=== PATIENT | female | born 1970 | race Caucasian/White ===

== ENCOUNTER 2017-04-09 17:07 | Emergency (ER) | payer BC ==
[~2017-04-09] VITALS: Ht 160 cm; Wt 66.7 kg
[2017-04-09 17:12] VITALS: TEMP 37.2; Ht 160 cm; Wt 66.7 kg
--- NOTE | 2017-04-09 17:41 | EMERGENCY ROOM VISIT NOTE ---
History Report prepared by Eugeneibellen: David Salgado Under the Supervision of: Dr. Geraldo Syed M.D. First contact with patient: 17:16 Chief Complaint: HEEL PAIN Stated Complaint: L ACHILLES TENDON History of Present Illness The patient is a 47 year old female who presents to the Emergency Room with complaints of persistent discomfort in her left ankle that started yesterday. The patient has a history of rupturing her Achilles tendons and has had multiple surgeries on both of her Achilles. The patient notes that she has been working out more frequently for the past month and a half. Yesterday, she was helping move boxes out of a basement when she started to notice the discomfort. When she woke up this morning and tried to stand up, the discomfort was significantly worse. She also notes a rubbing sensation and clicking sound with walking that is similar to her symptoms in the past when she has torn her Achilles. She also complains of a sudden shooting pain in her left ankle at times that comes and goes. She notes that her discomfort is significantly worsened when she puts weight on that foot. Source of History: patient Onset: yesterday Position: ankle (left) Quality: other (rubbing sensation and clicking sound) Timing: other (persistent) Modifying Factors (Worsening): other (weight-bearing) Note: Other associated symptoms: pain in ankle Review of Systems See HPI for pertinent positives & negatives. A total of 10 systems reviewed and were otherwise negative. Past Medical & Surgical Medical Problems: (1) Fibromyalgia Family History No significant family history Social History Smoking Status: Current Every Day Smoker Drug Use: none Marital Status: in relationship Housing Status: lives with family Occupation Status: employed Current/Historical Medications No Active Prescriptions or Reported Meds Allergies Coded Allergies: Ciprofloxacin (Verified Allergy, Unknown, vomiting, 04/09/17) Iodine (Verified Allergy, Unknown, rash, 04/09/17) Levofloxacin (Verified Allergy, Unknown, achilles tendons ruptured, ) Morphine (Verified Allergy, Unknown, vomiting, 04/09/17) Penicillins (Verified Allergy, Unknown, rash, 04/09/17) Sulfamethoxazole w/Trimethoprim (Verified Allergy, Unknown, dizzy, 04/09/17 ) Physical Exam Vital Signs Date Time Temp Pulse Resp B/P Pulse Ox O2 Delivery O2 Flow Rate FiO2 04/09/17 20:40 83 18 122/69 99 04/09/17 19:05 83 18 122/71 98 Room Air 04/09/17 17:12 37.2 102 20 122/77 97 Room Air Physical Exam GENERAL: Patient is a healthy-appearing well-nourished HEAD: Normocephalic atraumatic EYES: Ocular movements intact pupils equal and react to light OROPHARYNX mucous membranes are moist no exudates present no erythema or edema present NECK: Supple no nuchal rigidity CHEST: Good equal expansion LUNGS: Clear and equal to auscultation CARDIAC: Normal S1 and S2 ABDOMEN: Soft nontender no guarding BACK: No CVA tenderness EXTREMITIES: Able to plantarflex and dorsiflex the ankle, small bulge to the back of the ankle where the Achilles is. NEURO: Patient is following commands is answering questions appropriately. Alert and oriented x3 Cranial Nerves 2-12 grossly intact Medical Decision & Procedures ER Provider Diagnostic Interpretation: US results as stated below per my review and radiologist interpretation: ULTRASOUND LEFT LOWER EXTREMITY NONVASCULAR CLINICAL HISTORY: Left posterior ankle pain. Reported history of previous Achilles rupture/repair. COMPARISON STUDY: No priors. TECHNIQUE: Real-time grayscale sonography of the left Achilles tendon is performed. The Achilles tendon appears intact. There is a 4 mm echogenic shadowing structure within the substance of the Achilles tendon at the site of erythema. This may represent postoperative change. There is no fluid identified around the Achilles tendon. No hematoma is seen. IMPRESSION: 1. The Achilles tendon appears intact as imaged. 2. A shadowing echogenic structure along the course of the Achilles tendon may represent a calcification or postoperative change. Clinical correlation will be required. 3. There is no fluid identified around the Achilles tendon. No hematoma is suggested. Dictated: 04/09/2017 7:08 PM Transcribed: 04/09/2017 7:54 PM [email or web address] Electronically signed by: Puma Hennessy M.D. 04/09/2017 7:54 PM Dictated Date/Time: 04/09/2017 7:08 PM ED Course 1721: Past medical records reviewed. The patient was evaluated in room B11. A complete history and physical examination was performed. Medical Decision This is a 47-year-old female who presents emergency department complaining of left Achilles pain. Patient has a history of Achilles rupture. Based on the patient's complaint she was sent for an ultrasound of the tendon however does appear to be intact. Despite this I will place the patient in a walking boot and recommended she use crutches for follow-up with orthopedics. Patient was in agreement with the treatment plan. She refused any pain medication in the emergency department. Impression Primary Impression: Pain of left heel Scribe Attestation The scribe's documentation has been prepared under my direction and personally reviewed by me in its entirety. I confirm that the note above accurately reflects all work, treatment, procedures, and medical decision making performed by me. Departure Information Dispostion Home / Self-Care Prescriptions No Active Prescriptions or Reported Meds Referrals Ge Jennings MD (PCP) Forms HOME CARE DOCUMENTATION FORM, IMPORTANT VISIT INFORMATION, WORK / SCHOOL INSTRUCTIONS Patient Instructions ED Tendon Rupture Achilles, [facility], [place], Surgery Achilles Tendon Repair Additional Instructions Follow up with DR Cisneros's office Take 600 mg Ibuprofen every 6 hours You have been examined and treated today on an emergency basis only. This is not a substitute for, or an effort to provide, complete comprehensive medical care. It is impossible to recognize and treat all injuries or illnesses in a single emergency department visit. It is therefore important that you follow up closely with Dr Jennings. Call as soon as possible for an appointment. Thank you for your time and consideration. I look forward to speaking with you again soon. Please don't hesitate to call us if you have any questions.
--- NOTE | 2017-04-09 19:54 | DIAGNOSTIC IMAGING REPORT ---
ULTRASOUND LEFT LOWER EXTREMITY NONVASCULAR CLINICAL HISTORY: Left posterior ankle pain. Reported history of previous Achilles rupture/repair. COMPARISON STUDY: No priors. TECHNIQUE: Real-time grayscale sonography of the left Achilles tendon is performed. The Achilles tendon appears intact. There is a 4 mm echogenic shadowing structure within the substance of the Achilles tendon at the site of erythema. This may represent postoperative change. There is no fluid identified around the Achilles tendon. No hematoma is seen. IMPRESSION: 1. The Achilles tendon appears intact as imaged. 2. A shadowing echogenic structure along the course of the Achilles tendon may represent a calcification or postoperative change. Clinical correlation will be required. 3. There is no fluid identified around the Achilles tendon. No hematoma is suggested. Dictated: 04/09/2017 7:08 PM Transcribed: 04/09/2017 7:54 PM [email or web address]Summer Electronically signed by: Puma Hennessy M.D. 04/09/2017 7:54 PM Dictated Date/Time: 04/09/2017 7:08 PM
[2017-04-09 20:40] VITALS: BP 122/69; PULSE 83; O2SAT 99
[2017-05-06] MEDS ORDERED: OMEG10007 PO (11:25)
[2017-05-06] MEDS ORDERED: MULT-506 PO (11:25)
[2017-05-06] MEDS ORDERED: CALC-51 PO (11:25)
[2017-05-11] MEDS ORDERED: FLUT0.15 (12:19)
== END 2017-04-09 20:42 | disposition home or self-care (01) ==
LOC: C.EDB 17:11
DX: M25.572 Pain in left ankle and joints of left foot (principal); F17.200 Nicotine dependence, unspecified, uncomplicated; Z88.0 Allergy status to penicillin; Z88.2 Allergy status to sulfonamides; Z88.3 Allergy status to other anti-infective agents; Z88.5 Allergy status to narcotic agent; Z88.8 Allergy status to other drugs, medicaments and biological substances; Z91.09 Other allergy status, other than to drugs and biological substances

== ENCOUNTER → 2017-05-11 | Day surgery (SDC) | payer BC ==
[2017-05-06 11:25] VITALS: Ht 157.5 cm; Wt 62.3 kg
[~2017-05-11] VITALS: Ht 157.5 cm; Wt 62.3 kg
[~2017-05-11] MED LIST: BUPIVACAINE 0.25% 2.5MG/ML PF 10 ML VIAL ONE; CALC-51 PO; FLUT0.15; LIDOCAINE HCL 1% 20 ML VIAL ONE; LIDOCAINE HCL 1% MPF 5 ML VIAL ONE; METH4PAK PO; MULT-506 PO; OMEG10007 PO
--- NOTE | 2017-05-11 12:54 | History & Physical Bridge - SC ---
H&P Re-Evaluation Bridge Note: I have examined the patient, reviewed the History & Physical and in the interval since the performance of the History & Physical I have noted the following changes of clinical significance: No changes noted
[2017-05-11 14:14] VITALS: TEMP 37.1
--- NOTE | 2017-05-11 14:26 | Discharge Instructions ---
Discharge Instructions Date of Service May 11, 2017. Visit Reason for Visit: Low Back Pain Discharge Discharge Diagnosis / Problem: chronic low back pain Discharge Goals Goal(s): Decrease discomfort, Improve function Activity Recommendations Activity Limitations: resume your previous activity Anesthesia . Post Anesthesia Instructions: If you have had General Anesthesia or IV Sedation: * Do not drive today. * Resume driving when surgeon permits. * Do not make important decisions or sign legal documents today. * Call surgeon for: 1. Temperature elevations greater than 101 degrees F. 2. Uncontrollable pain. 3. Excessive bleeding. 4. Persistent nausea and vomiting. 5. Medication intolerance (nausea, vomiting or rash). * For nausea and vomiting use only clear liquids such as: tea, soda, bouillon until nausea subsides, then gradually increase diet as tolerated. * If you have any concerns or questions, call your surgeon's office. If physician is unavailable and it is an emergency, call 911 or go to the nearest emergency room. . Diet Recommendations Recommended Home Diet: resume previous diet Procedures Procedures Performed: Bilateral L4-5, L5-S1 Radio Frequency Denervation Pending Studies Studies pending at discharge: no Medical Emergencies . Who to Call and When: Medical Emergencies: If at any time you feel your situation is an emergency, please call 911 immediately. . Non-Emergent Contact Non-Emergency issues call your: Specialist . . "Provider Documentation" section prepared by Aman Garcia. .
[2017-05-11 14:29] VITALS: BP 112/69; PULSE 78; O2SAT 98
--- NOTE | 2017-05-11 14:42 | OPERATIVE REPORT ---
DATE OF OPERATION: 05/11/2017 PREOPERATIVE DIAGNOSIS: Bilateral facet arthropathy with pain of L4-L5, L5-S1. POSTOPERATIVE DIAGNOSIS: Same. PROCEDURE: Bilateral L4-L5, L5-S1 radiofrequency facet denervation. INDICATIONS: The patient is a 47-year-old white female who has had successful medial branch blocks done in the past, but did not have a denervation done. She has dealt with this pain in the facet areas for years and presents today for denervation procedure. PHYSICAL EXAMINATION: Pleasant female seated comfortably. She is point tender to palpation at the L4-L5, L5-S1 facet areas, worse with extension and limitations with motion and movement of her lower extremity. She had no focal weakness or sensory disturbance. CONSENT: Risks and benefits were reviewed with the patient. She wishes to proceed. Risks include, but are not limited to abscess, allergic reaction and nerve denervation was obtained from the patient. Risks and benefits were reviewed. DESCRIPTION OF PROCEDURE: The patient was taken back to the special procedures room of the [facility] where she was maintained in a prone position. Backside was cleansed with chlorhexidine prep, not BETADINE GIVEN HER ALLERGY. Straight sterile dressing was applied. Fluoroscope was used to identify the left L4 transverse process, the left L5 transverse process and the left sacral ala. Overlying skin was anesthetized with 1 mL lidocaine 1% with a 25 gauge 1.5-inch needle. A 22 gauge 10 cm [place] needle was then contacted the bone at each target. It was maneuvered and sensory stimulation and then motor stimulation was done. Sensory stimulation provoked sensation at 0.2-0.3 volts at each site. Motor stimulation provoked robust paraspinal spasms, but nothing radiating down the leg at each site and she underwent anesthetization with 1 mL lidocaine 1% at each site and then denervation 80 degrees 100 seconds x2 at each site. Following the denervation at each site, underwent injection of bupivacaine 0.25% 1 mL. The right L4 transverse process junction, L5 transverse process junction and right sacral ala were then fluoroscopically identified. Overlying skin anesthetized with 1 mL lidocaine 1% with a 25 gauge 1.5-inch needle. A 22 gauge 10 cm [place] will contact bone at each site. Sensory stimulation was in 0.2 volt range at each level. Motor stimulation did not provoke any lower extremity movement of twitching into the foot but localized robust paraspinal spasms. She underwent anesthetization with 1 mL of lidocaine 1% at each site and then denervation 80 degrees 100 seconds x2 at each site and then injection of bupivacaine 0.25% 1 mL at each site. The procedure was well tolerated. DISPOSITION: 1. The patient is taken out into the discharge recovery area where she will be discharged home once discharge criteria have been met. 2. Follow up in the [facility] office in 4 weeks' time. I attest to the content of the Intraoperative Record and any orders documented therein. Any exception s are noted below.
== END | disposition home or self-care (01) ==
LOC: X.SURG 12:03
PROVIDERS: ATTEND Physical Medicine & Rehabilitation
DX: M46.97 Unspecified inflammatory spondylopathy, lumbosacral region (principal); Z90.710 Acquired absence of both cervix and uterus; Z90.49 Acquired absence of other specified parts of digestive tract; Z88.1 Allergy status to other antibiotic agents; Z88.5 Allergy status to narcotic agent; Z88.0 Allergy status to penicillin; Z91.013 Allergy to seafood; F17.200 Nicotine dependence, unspecified, uncomplicated; Z82.49 Family history of ischemic heart disease and other diseases of the circulatory system; Z80.9 Family history of malignant neoplasm, unspecified; Z82.3 Family history of stroke; Z83.3 Family history of diabetes mellitus

== ENCOUNTER 2017-10-10 13:36 | Emergency (ER) | payer BC, OTHER ==
[~2017-10-10] VITALS: Ht 157.5 cm; Wt 63.1 kg
[~2017-10-10 13:36] MED LIST changes: -BUPIVACAINE 0.25% 2.5MG/ML PF 10 ML VIAL ONE; -LIDOCAINE HCL 1% 20 ML VIAL ONE; -LIDOCAINE HCL 1% MPF 5 ML VIAL ONE; -METH4PAK PO
[2017-10-10 13:39] VITALS: TEMP 37.2; Ht 157.5 cm; Wt 63.1 kg
--- NOTE | 2017-10-10 14:52 | DIAGNOSTIC IMAGING REPORT ---
C-SPINE ROUTINE 4 OR 5 VIEWS CLINICAL HISTORY: left arm pain, weakness COMPARISON STUDY: No previous studies for comparison. FINDINGS: The prevertebral soft tissues are normal. No fractures or subluxations are visualized. The bony neural foramina are widely patent bilaterally. IMPRESSION: Unremarkable conventional radiographic evaluation of the cervical spine. Electronically signed by: Arthur Carter M.D. 10/10/2017 2:50 PM Dictated Date/Time: 10/10/2017 2:50 PM
[2017-10-10 14:53] LABS: BASO % 0.5 %; BASO ABS # 0.05 K/uL (0-0.2); COMPLETE YES; EOS % 3.6 %; HEMATOCRIT 37.8 % (37-47); IG% 0.3 %; LYMPH % 32.2 %; LYMPH ABS # 2.99 K/uL (1.2-3.4); MEAN CELL VOLUME 88.5 fL (80-100); MEAN CORPUSCULAR HEMOGLOBIN 30.9 pg (25-34); MEAN CORPUSCULAR HGB CONC 34.9 g/dl (32-36); MEAN PLATELET VOLUME 9.7 fL (7.4-10.4); NEUT % 56.4 %; PLATELET COUNT 268 K/uL (130-400); RED BLOOD COUNT 4.27 M/uL (4.2-5.4); WHITE BLOOD COUNT 9.29 K/uL (4.8-10.8)
--- NOTE | 2017-10-10 14:54 | DIAGNOSTIC IMAGING REPORT ---
L SHOULDER MIN 2 VIEWS ROUTINE CLINICAL HISTORY: Left arm pain and weakness COMPARISON: None. DISCUSSION: No fractures or dislocations are visualized. There are no erosive or destructive changes. IMPRESSION: No fractures dislocations or destructive lesions are visualized. Electronically signed by: Arthur Carter M.D. 10/10/2017 2:52 PM Dictated Date/Time: 10/10/2017 2:52 PM
--- NOTE | 2017-10-10 14:55 | DIAGNOSTIC IMAGING REPORT ---
L ELBOW MIN 3 VIEWS ROUTINE CLINICAL HISTORY: LEFT ELBOW PAIN AND WEAKNESS COMPARISON: None. DISCUSSION: No fractures or dislocations are visualized. There is a tiny coronoid process spur. The fat pads are not displaced. IMPRESSION: 1. No acute fractures 2. Tiny coronoid process spur Electronically signed by: Arthur Carter M.D. 10/10/2017 2:53 PM Dictated Date/Time: 10/10/2017 2:53 PM
[2017-10-10 15:08] LABS: ALT/SGPT 21 U/L (12-78); BLOOD UREA NITROGEN 9 mg/dl (7-18); BUN/CREATININE RATIO 15.3 (10-20); C-REACTIVE PROTEIN < 0.29 mg/dl (0-0.29); CALCIUM 8.7 mg/dl (8.5-10.1); CARBON DIOXIDE 23 mmol/L (21-32); CHLORIDE 107 mmol/L (98-107); CREATININE 0.57 mg/dl (0.60-1.20); GLUCOSE 103 mg/dl (70-99); POTASSIUM 3.7 mmol/L (3.5-5.1); SODIUM 140 mmol/L (136-145)
[2017-10-10 15:19] LABS: ALB/GLOB RATIO 1.2 (0.9-2); ALKALINE PHOSPHATASE 53 U/L (45-117); AST/SGOT 14 U/L (15-37)
[2017-10-10] MEDS ORDERED: KETOROLAC TROMETHAMINE 30 MG/ML VIAL IV STA (15:44)
[2017-10-10] MEDS ORDERED: METH4PAK PO (15:55)
--- NOTE | 2017-10-10 15:57 | EMERGENCY ROOM VISIT NOTE ---
History First contact with patient: 13:47 Chief Complaint: ELBOW PAIN/INJURY Stated Complaint: L ELBOW PAIN AND WEAKNESS History of Present Illness The patient is a 47 year old female who presents to the Emergency Room with complaints of left elbow pain and weakness. The patient states that she has had pain and weakness in her left arm and elbow for the past 6 weeks. She states that the pain is mostly concentrated in her left elbow. She has noticed weakness in her left hand and difficulty picking up objects, which is very abnormal for her. She states that her left shoulder feels "loose" and she feels that it slipped out of place today. The patient also reports that she has had pain in other joints and muscles. She has had some left knee pain worsening over the past few weeks. She states that a few days ago, she was working with her right arm and afterwards developed swelling in the right shoulder/neck area. She does state that she has been dealing with joint and muscle pains for several years. She has a history of back pain and was told by pain management that she has seronegative ankylosing spondylitis. She has not seen a head insulation board saw operator. The patient is concerned because she has a family history of autoimmune disease. She reports that her mother had MS and her father had polymyositis. The patient reports generalized fatigue. She has had previous issues with Achilles tendon rupture and Achilles tendinitis. Review of Systems A complete 10 point review of systems was reviewed with the patient with pertinent positives and negatives as per history of present illness. All else were negative. Past Medical/Surgical History Medical Problems: (1) Fibromyalgia Family History No significant family history Social History Smoking Status: Former Smoker Drug Use: none Marital Status: in relationship Housing Status: lives with family Occupation Status: employed Current/Historical Medications Scheduled Methylprednisolone (Medrol Dosepak), 0 PO DAILY Physical Exam Vital Signs Date Time Temp Pulse Resp B/P (MAP) Pulse Ox O2 Delivery O2 Flow Rate FiO2 10/10/17 16:08 71 20 128/73 98 10/10/17 15:51 71 20 128/73 98 Room Air 10/10/17 13:39 37.2 85 20 119/73 97 Room Air Physical Exam VITALS: Vitals are noted on the nurse's note and reviewed by myself. Vital signs stable. GENERAL: This is a 47-year-old female, in no acute distress but mildly anxious appearing, well-developed well-nourished. SKIN: The skin was without rashes, erythema, edema, or bruising. EARS: External auditory canals clear, tympanic membranes pearly viera without erythema or effusion bilaterally. EYES: Pupils equal round and reactive to light and accommodation. MOUTH: Mucous membranes moist. NECK: Supple without nuchal rigidity. HEART: Regular rate and rhythm without murmurs gallops or rubs. LUNGS: Clear to auscultation bilaterally without wheezes, rales or rhonchi. MUSCULOSKELETAL: There is diffuse tenderness to the left cervical paraspinous muscles, left shoulder and left elbow. Full range of motion of bilateral upper extremities. Strength in the left upper extremity is slightly decreased compared to the right. Normal sensation. NEURO: Patient was alert and oriented to person place and time. Medical Decision & Procedures ER Provider Diagnostic Interpretation: C-SPINE ROUTINE 4 OR 5 VIEWS IMPRESSION: Unremarkable conventional radiographic evaluation of the cervical spine. L ELBOW MIN 3 VIEWS ROUTINE IMPRESSION: 1. No acute fractures 2. Tiny coronoid process spur L SHOULDER MIN 2 VIEWS ROUTINE IMPRESSION: No fractures dislocations or destructive lesions are visualized. Laboratory Results 10/10/17 14:28 Red Blood Count 4.27, Mean Corpuscular Volume 88.5, Mean Corpuscular Hemoglobin 30.9, Mean Corpuscular Hemoglobin Concent 34.9, Mean Platelet Volume 9.7, Neutrophils (%) (Auto) 56.4, Lymphocytes (%) (Auto) 32.2, Monocytes (%) (Auto) 7.0, Eosinophils (%) (Auto) 3.6, Basophils (%) (Auto) 0.5, Neutrophils # (Auto) 5.24, Lymphocytes # (Auto) 2.99, Monocytes # (Auto) 0.65, Eosinophils # (Auto) 0.33, Basophils # (Auto) 0.05 10/10/17 14:28 Test 10/10/17 14:28 White Blood Count 9.29 K/uL (4.8-10.8) Red Blood Count 4.27 M/uL (4.2-5.4) Hemoglobin 13.2 g/dL (12.0-16.0) Hematocrit 37.8 % (37-47) Mean Corpuscular Volume 88.5 fL (80-100) Mean Corpuscular Hemoglobin 30.9 pg (25-34) Mean Corpuscular Hemoglobin Concent 34.9 g/dl (32-36) Platelet Count 268 K/uL (130-400) Mean Platelet Volume 9.7 fL (7.4-10.4) Neutrophils (%) (Auto) 56.4 % Lymphocytes (%) (Auto) 32.2 % Monocytes (%) (Auto) 7.0 % Eosinophils (%) (Auto) 3.6 % Basophils (%) (Auto) 0.5 % Neutrophils # (Auto) 5.24 K/uL (1.4-6.5) Lymphocytes # (Auto) 2.99 K/uL (1.2-3.4) Monocytes # (Auto) 0.65 K/uL (0.11-0.59) Eosinophils # (Auto) 0.33 K/uL (0-0.5) Basophils # (Auto) 0.05 K/uL (0-0.2) RDW Standard Deviation 40.0 fL (36.4-46.3) RDW Coefficient of Variation 12.5 % (11.5-14.5) Immature Granulocyte % (Auto) 0.3 % Immature Granulocyte # (Auto) 0.03 K/uL (0.00-0.02) Erythrocyte Sedimentation Rate 4 mm/hr (0-21) Anion Gap 11.0 mmol/L (3-11) Est Creatinine Clear Calc Drug Dose 108.8 ml/min Estimated GFR () 129.8 Estimated GFR (Non- 112.0 BUN/Creatinine Ratio 15.3 (10-20) Calcium Level 8.7 mg/dl (8.5-10.1) Total Bilirubin 0.3 mg/dl (0.2-1) Aspartate Amino Transf (AST/SGOT) 14 U/L (15-37) Alanine Aminotransferase (ALT/SGPT) 21 U/L (12-78) Alkaline Phosphatase 53 U/L (45-117) Total Creatine Kinase 93 U/L (26-192) C-Reactive Protein < 0.29 mg/dl (0-0.29) Total Protein 6.9 gm/dl (6.4-8.2) Albumin 3.8 gm/dl (3.4-5.0) Globulin 3.1 gm/dl (2.5-4.0) Albumin/Globulin Ratio 1.2 (0.9-2) Thyroid Stimulating Hormone (TSH) 1.210 uIu/ml (0.300-4.500) Medications Administered Medications (Trade) Dose Ordered Sig/Ya Route Start Time Stop Time Status Last Admin Dose Admin Ketorolac Tromethamine (Toradol Inj) 30 mg NOW STAT IV 10/10/17 15:44 10/10/17 15:45 DC 10/10/17 15:50 30 MG Medical Decision Differential diagnosis includes cervical radiculopathy, rheumatoid disorder, fibromyalgia, among others. The patient was evaluated as above. She has had pain in multiple joints ongoing for the past several months. The patient does admit that she has had issues with chronic pain for several years. She has been worked up extensively by pain management. She has never seen a head insulation board saw operator. X-rays of the cervical spine, shoulder and elbow were obtained and read by radiology with no acute findings. Labs were obtained and are unremarkable. There is no leukocytosis or anemia. Sedimentation rate and CRP are within normal limits. Patient requested a CPK, which was performed and was also normal. I did give the patient information for a local head insulation board saw operator to follow-up with. She may also follow-up with her primary care provider. The patient's primary concern is her left shoulder and elbow pain. This may be secondary to cervical radiculopathy and I did recommend a course of a steroid. She was given a prescription for a Medrol Dosepak. She verbalized understanding of my assessment and treatment plan and was discharged home in good condition. Medication Reconcilliation Current Medication List: was personally reviewed by id Blood Pressure Screening Patient's blood pressure: Normal blood pressure Impression Primary Impression: Joint pain Departure Information Dispostion Home / Self-Care Condition GOOD Prescriptions Methylprednisolone (MEDROL DOSEPAK) 4 Mg Sujit 0 PO DAILY, #1 PKT Prov: Katiuska Benson .GENEVA 10/10/17 Referrals Ge Jennings MD (PCP) Mindy Arias MD Patient Instructions [facility] Additional Instructions Follow-up with rheumatology as discussed. Medrol Dosepak as prescribed. As with any visit to the emergency Department, you should follow-up with your primary care provider. Return to the emergency room with any worsening or new/concerning symptoms.
[2017-10-10 16:08] VITALS: BP 128/73; PULSE 71; O2SAT 98
== END 2017-10-10 16:09 | disposition home or self-care (01) ==
LOC: C.EDB 13:37 → C.EDA 16:09
DX: M25.50 Pain in unspecified joint (principal); M79.7 Fibromyalgia; Z87.891 Personal history of nicotine dependence